=== PATIENT | male | born 1960 | race African-American/Black ===

== ENCOUNTER → 2025-06-08 08:07 | Outpatient (REF) | payer MEDICARE, OTHER, SELFPAY | LOC: HWRCS 08:07 | PROVIDERS: ATTENDING PHYSICIAN Internal Medicine Cardiovascular Disease; FAMILY PHYSICIAN Internal Medicine | DX: I48.19 Other persistent atrial fibrillation (principal); I42.2 Other hypertrophic cardiomyopathy | CPT/HCPCS: 93306 ==